=== PATIENT | female | born 1990 | race Caucasian/White ===

== ENCOUNTER 2016-08-23 13:57 | Emergency (ER) | payer MEDICAID, OTHER ==
[~2016-08-23] VITALS: Wt 68.0 kg
[2016-08-23] MEDS ORDERED: ONDANSETRON (ODT) 4 MG TAB ODT STA (15:44)
--- NOTE | 2016-08-23 15:58 | ERD ---
ER Documentation Chief Complaint Date/Time DATE: 08/23/16 TIME: 15:55 Chief Complaint EYE REDNESS/ITCHING, BODYACHES, CONGESTION HPI Patient is a 26-year-old female with no significant medical history presenting to the emergency department for 4 episodes of nonbloody nonbilious vomiting and midepigastric pain which is a 5 out of 10 which began this morning. Additionally the patient reports she has eye redness and swelling bilaterally. The patient does report seasonal allergies. The patient denies eating anything unusual. The patient denies any fever, chills, urinary symptoms, or other symptoms at this time. ROS All systems reviewed and are negative except as per history of present illness. Medications Home Meds Active Scripts Ondansetron (Ondansetron Odt) 4 Mg Tab.rapdis, 4 MG PO Q6H Y for NAUSEA AND/OR VOMITING, #10 TAB Prov:CY CAMACHO PA-C 08/23/16 Allergies Allergies: Coded Allergies: No Known Allergy (Unverified , 08/23/16) FmHx Noncontributory for chief complaint Physical Exam Vitals Vital Signs Date Time Temp Pulse Resp B/P Pulse Ox O2 Delivery O2 Flow Rate FiO2 08/23/16 14:19 97.6 74 18 140/74 98 Physical Exam INITIAL VITAL SIGNS: Reviewed by me. GENERAL: Alert and interactive. No acute distress. HEAD: Head is normocephalic and atraumatic. EYES: EOMI. No scleral icterus. No conjunctival injection. ENT: Moist mucosa. NECK: Supple. Full range of motion. RESPIRATORY: Normal respiratory effort. Clear breath sounds bilaterally. No wheezing, rales, or rhonchi. CV: Regular rate and rhythm. Normal S1 S2. No S3 or S4. No murmurs. ABDOMEN: Soft, non-distended, mild tenderness to palpation in the midepigastric region. No guarding. No rebound. No masses. EXTREMITIES: No deformity. SKIN: Warm and dry. NEUROLOGIC: Alert and oriented x 4. Speech is normal. Moves all extremities equally. No motor or sensory deficits noted. Results 24 hrs Laboratory Tests Test 08/23/16 16:23 Bedside Urine Blood 3+ Bedside Urine Glucose (UA) Negative Bedside Urine Ketones (LAB) 1+ Bedside Urine Leukocyte Esterase (L Negative Bedside Urine Nitrite (LAB) Negative Bedside Urine Protein (LAB) Negative Bedside Urine pH (LAB) 6.0 Current Medications Medications (Trade) Dose Ordered Sig/Ruth Route PRN Reason Start Time Stop Time Status Last Admin Dose Admin Ondansetron HCl (Zofran Odt) 4 mg ONCE STAT ODT 08/23/16 15:44 08/23/16 15:46 DC 08/23/16 16:23 Miscellaneous Medication (Gi Cocktail (2)) 40 ml ONCE ONCE PO 08/23/16 16:00 08/23/16 16:01 DC 08/23/16 16:23 Procedures/MDM The patient was given a GI cocktail and 4 mg p.o. Zofran in the department for nausea and midepigastric pain. On reevaluation the patient is feeling improved after medication. MDM: 26-year-old female presents to the emergency department for nausea and 4 episodes of vomiting today she also reports midepigastric pain. I have ordered a urinalysis looking for any signs of urinary tract infection or proteinuria. UA results show no signs of urinary tract infection. The patient's symptoms are most likely a viral gastroenteritis. She was given a prescription for Zofran and states she was feeling much improved after treatment in the department. She is stable for discharge at this time. Her questions and concerns of been addressed and she has been advised to follow-up with her primary medical doctor in 1-2 days. She was given a work note for 2 days. Departure Diagnosis: Primary Impression: Midepigastric pain Additional Impression: Nausea & vomiting Condition: Stable Additional Instructions: Follow-up with your primary care physician within 1 week. Return to the emergency department immediately should you have any new or worsening symptoms, uncontrolled fevers, or other unexplained symptoms. Take all medications as directed. CY CAMACHO PA-C Aug 23, 2016 15:58
[2016-08-23] MEDS ORDERED: LIDOCAINE/MYLANTA 40 ML BTL PO ONE (16:00)
[2016-08-23 16:23] LABS: URINE BLOOD (Dip) POC 3+ (NEGATIVE)
[2016-08-23] MEDS ORDERED: ONDA4TAB14 PO (16:27)
== END 2016-08-23 17:31 | disposition home or self-care (01) ==
LOC: FTE 13:57
DX: R10.13 Epigastric pain (principal); R11.2 Nausea with vomiting, unspecified
CPT/HCPCS: 81003; Z7502; Z7610; 99283

== ENCOUNTER 2016-09-21 18:48 | Emergency (ER) | payer MEDICAID ==
[~2016-09-21] VITALS: Ht 170.2 cm; Wt 70.0 kg
[~2016-09-21 18:48] MED LIST: ONDA4TAB14 PO
[2016-09-21 19:56] VITALS: Ht 170.2 cm; Wt 70.0 kg
[2016-09-21] MEDS ORDERED: FAMOTIDINE 20 MG TAB PO ONE (20:30)
[2016-09-21] MEDS ORDERED: DIPHENHYDRAMINE 25 MG CAP PO ONE (20:30)
[2016-09-21] MEDS ORDERED: METHYLPREDNISOLONE 125 MG INJ IM ONE (20:30)
[2016-09-21] MEDS ORDERED: FAMO-18 PO (20:40)
[2016-09-21] MEDS ORDERED: PRED20TA PO (20:40)
[2016-09-21] MEDS ORDERED: BEN25 PO (20:40)
[2016-09-21] MEDS ORDERED: EPIN0.3P4 INJ (20:42)
--- NOTE | 2016-09-21 22:14 | ERD ---
ER Documentation Chief Complaint Date/Time DATE: 09/21/16 TIME: 22:10 Chief Complaint allergic reaction HPI 26-year-old female with no significant past medical history presents the ED complaining of sneezing and running at [employer] yesterday. States that there was someone mowing the lawn and pollen was flying everywhere. States that she is allergic to pollen. States that she started to get really bad itchy eyes. Reports that she has been rubbing and scratching both of her eyes. Denies any fever, chills, abdominal pain, eye pain, blurred vision, diplopia, headache, weakness, wheezing, shortness of breath, lip or tongue swelling, difficulty breathing. States that she did not have to use an epi-pen. States that she is speaking in full sentences without difficulty. Denies any difficulty swallowing or opening and closing her mouth/jaw. ROS All systems reviewed and are negative except as per history of present illness. Medications Home Meds Active Scripts Epinephrine (Epipen 2-Luca) 0.3 Mg/0.3 Ml Pen.injctr, 1 EA INJ ONCE Y for ALLERGIC REACTION, #1 EA Prov:CHRISTIAN CRANDALL PA-C 09/21/16 Prednisone* (Prednisone*) 20 Mg Tab, 40 MG PO DAILY for 4 Days, TAB Prov:CHRISTIAN CRANDALL PA-C 09/21/16 Famotidine* (Pepcid*) 20 Mg Tablet, 20 MG PO BID, #30 TAB Prov:CHRISTIAN CRANDALL PA-C 09/21/16 Diphenhydramine Hcl* (Benadryl*) 25 Mg Cap, 25 MG PO Q6, #30 CAP Prov:CHRISTIAN CRANDALL PA-C 09/21/16 Ondansetron (Ondansetron Odt) 4 Mg Tab.rapdis, 4 MG PO Q6H Y for NAUSEA AND/OR VOMITING, #10 TAB Prov:CY CAMACHO PA-C 08/23/16 Allergies Allergies: Coded Allergies: No Known Allergy (Unverified , 08/23/16) PMhx/Soc History of Surgery: No Anesthesia Reaction: No Hx Neurological Disorder: No Hx Respiratory Disorders: No Hx Cardiac Disorders: No Hx Psychiatric Problems: No Hx Alcohol Use: Yes (OCCASSIONAL) Hx Substance Use: Yes (MARIJUANA) Hx Tobacco Use: No Smoking Status: Light tobacco smoker Physical Exam Vitals Vital Signs Date Time Temp Pulse Resp B/P Pulse Ox O2 Delivery O2 Flow Rate FiO2 09/21/16 19:56 98.2 76 20 121/67 100 Physical Exam Const: [id number], well-nourished. In no acute distress. Head: Atraumatic, normocephalic Eyes: Normal Conjunctiva without injection. No purulent discharge. PERRLA. EOMI. Bilateral darek-orbital edema and erythema. ENT: Normal external ear. Ear canal without erythema. Tympanic membrane pearly moura without effusion or bulging. Nasal canal clear with normal turbinates. Moist oropharynx without tonsillar exudates. Non-erythematous pharynx. Uvula midline. No drooling. No trismus. Neck: No cervical midline tenderness. Full range of motion. No meningismus. No cervical lymphadenopathy. No JVD. Resp: Clear to auscultation bilaterally. No wheezing, rhonchi, rales, or crackles. No accessory muscle use. No retractions. Cardio: Regular rate and rhythm. No murmurs, rubs or gallops. Abd: Soft, non tender, non distended. Normal bowel sounds. No palpable masses. No rebound tenderness. No guarding. Negative McBurney's Point. Negative Abdul's Sign. Skin: Normal skin turgor. No petechiae or rashes Back: No midline tenderness. No CVA tenderness. Ext: No cyanosis, or edema. Distal pulses intact bilaterally. Neur: Awake and alert. Normal gait. Normal coordination. Cranial Nerves II- VII intact. Normal finger to nose. Muscle strength 5/5. Sensation intact. Psych: Normal Mood and Affect Results 24 hrs Current Medications Medications (Trade) Dose Ordered Sig/Ruth Route PRN Reason Start Time Stop Time Status Last Admin Dose Admin Methylprednisolone Sodium Succinate (Solu-Medrol) 125 mg ONCE ONCE IM 09/21/16 20:30 09/21/16 20:31 DC 09/21/16 20:23 Diphenhydramine HCl (Benadryl) 25 mg ONCE ONCE PO 09/21/16 20:30 09/21/16 20:31 DC 09/21/16 20:23 Famotidine (Pepcid) 20 mg ONCE ONCE PO 09/21/16 20:30 09/21/16 20:31 DC 09/21/16 20:24 Procedures/MDM 26-year-old female with no significant past medical history presents the ED complaining of bilateral darek-orbital swelling and erythema after being exposed to pollen and secondary to scratching her eyes. Patient is afebrile and nontoxic-appearing. Patient has normal vital signs. Patient likely has an allergic reaction. Patient was treated here in the ED with 125 mg IM Solu- Medrol, 25 mg Benadryl, 20 mg Famotidine with improvement of her symptoms. There is low suspicion for anaphylactic shock, scabies, tinea infection, erythema multiforme, periorbital fractures, periorbital cellulitis, SJS/TEN, sepsis, cellulitis, necrotizing fascitis, or other emergent conditions. Discharge medications: Benadryl, Famotidine, Epinephrine, Prednisone Follow up with primary care physician in 1-2 days. Instructed patient to return to the ED sooner for any worsening symptoms. Patient's questions were answered. Patient understood and agreed with discharge plan. Patient discharged stable. Departure Diagnosis: Primary Impression: Allergic reaction Encounter type: initial encounter Qualified Code: T78.40XA - Allergic reaction, initial encounter Condition: Stable Patient Instructions: Controlling Allergens: Pollen, Allergic Reaction, Other ( General) Referrals: COMMUNITY CLINICS YOU HAVE RECEIVED A MEDICAL SCREENING EXAM AND THE RESULTS INDICATE THAT YOU DO NOT HAVE A CONDITION THAT REQUIRES URGENT TREATMENT IN THE EMERGENCY DEPARTMENT. FURTHER EVALUATION AND TREATMENT OF YOUR CONDITION CAN WAIT UNTIL YOU ARE SEEN IN YOUR DOCTORS OFFICE WITHIN THE NEXT 1-2 DAYS. IT IS YOUR RESPONSIBILITY TO MAKE AN APPOINTMENT FOR FOLOW-UP CARE. IF YOU HAVE A PRIMARY DOCTOR --you should call your primary doctor and schedule an appointment IF YOU DO NOT HAVE A PRIMARY DOCTOR YOU CAN CALL OUR PHYSICIAN REFERRAL HOTLINE AT IF YOU CAN NOT AFFORD TO SEE A PHYSICIAN YOU CAN CHOSE FROM THE FOLLOWING [facility] CLINICS [facility] [address] [facility]. [facility] [address] [facility] [address] [facility] [address] [facility]. [facility] [address] [facility] [address] [facility]. [facility] YOU HAVE RECEIVED A MEDICAL SCREENING EXAM AND THE RESULTS INDICATE THAT YOU DO NOT HAVE A CONDITION THAT REQUIRES URGENT TREATMENT IN THE EMERGENCY DEPARTMENT. FURTHER EVALUATION AND TREATMENT OF YOUR CONDITION CAN WAIT UNTIL YOU ARE SEEN IN YOUR DOCTORS OFFICE WITHIN THE NEXT 1-2 DAYS. IT IS YOUR RESPONSIBILITY TO MAKE AN APPOINTMENT FOR FOLOW-UP CARE. IF YOU HAVE A PRIMARY DOCTOR --you should call your primary doctor and schedule and appointment IF YOU DO NOT HAVE A PRIMARY DOCTOR YOU CAN CALL OUR PHYSICIAN REFERRAL HOTLINE AT . IF YOU CAN NOT AFFORD TO SEE A PHYSICIAN YOU CAN CHOSE FROM THE FOLLOWING [facility] INSTITUTIONS: [facility] [address] [place] [address] [address] [place] [address] [place], [place] [id number] [place] [address] [address] [place] [address] [facility] URGENT CARE/SPECIALTIES Additional Instructions: FOLLOW UP WITH YOUR PRIMARY CARE PHYSICIAN TOMORROW. Return to this facility if you are not improving as expected such as shortness of breath, wheezing, lip/ tongue swelling. CHRISTIAN CRANDALL PA-C Sep 21, 2016 22:13
== END 2016-09-21 21:03 | disposition home or self-care (01) ==
LOC: FTE 18:48
DX: H05.223 Edema of bilateral orbit (principal); F17.210 Nicotine dependence, cigarettes, uncomplicated
CPT/HCPCS: 96372; J2930; Z7502; Z7610